=== PATIENT | male | born 1995 | race Caucasian/White ===

== ENCOUNTER 2019-11-05 16:27 | Emergency (ER) | payer SELFPAY ==
[2019-11-05] MEDS ORDERED: Famotidine 20 MG TAB ONE (17:42)
[2019-11-05] MEDS ORDERED: predniSONE 20 MG TAB ONE (17:42)
== END 2019-11-05 17:48 | disposition home or self-care (01) ==
LOC: ERS 16:27
DX: L50.0 Allergic urticaria (principal); T36.8X5A Adverse effect of other systemic antibiotics, initial encounter
CPT/HCPCS: 99283; J7512

== ENCOUNTER 2020-08-27 17:11 | Emergency (ER) | payer BC, SELFPAY ==
[2020-08-28 08:40] LABS: SARS-CoV-2 MS2 Positive; SARS-CoV-2 N Gene Negative; SARS-CoV-2 S Gene Negative; SARS-CoV-2 by NAA Not Detected (NotDetected); SARS-CoV-2 orf1ab Negative
== END 2020-08-27 17:41 | disposition home or self-care (01) ==
LOC: ERS 17:11
DX: Z20.828 Contact with and (suspected) exposure to other viral communicable diseases (principal)
CPT/HCPCS: 87635; 99283; U0003